=== PATIENT | female | born 1970 | race African-American/Black ===

== ENCOUNTER 2017-10-16 12:40 | Outpatient (CLI) | payer MEDICARE, MEDICAID | END 2017-10-16 12:41 | disposition home or self-care (01) | LOC: ULT 12:40 | PROVIDERS: ATTEND Internal Medicine | DX: R01.1 Cardiac murmur, unspecified (principal); E83.52 Hypercalcemia | CPT/HCPCS: 36415; 80048; 82306; 82330; 83970; 93306 ==

== ENCOUNTER 2017-12-24 11:44 | Outpatient (CLI) | payer MEDICARE, MEDICAID | END 2017-12-24 11:45 | disposition home or self-care (01) | LOC: BICMAMMO 11:44 | PROVIDERS: ATTEND Internal Medicine | DX: Z12.31 Encounter for screening mammogram for malignant neoplasm of breast (principal) | CPT/HCPCS: 77063; 77067 ==

== ENCOUNTER 2018-11-14 12:29 | Emergency (ER) | payer MEDICARE, MEDICAID ==
[2018-11-14 13:54] LABS: Hemoglobin 14.4 g/dL (12.0-16.0); Mean Corpuscular HGB CONC 32.8 g/dL (32.0-36.0); Mean Corpuscular Hemoglobin 34.8 pg (27.0-31.0); Mean Platelet Volume 8.5 fL (7.4-10.4); Platelet Count 224 thou/uL (130-400); Red Blood Cell (RBC) Count 4.15 mill/uL (4.20-5.40); White Blood Cell (WBC) Count 7.6 thou/uL (4.8-10.8)
[2018-11-14 14:12] LABS: ALT (SGPT) 15 U/L (8-55); AST (SGOT) 20 U/L (5-34); Alkaline Phosphatase 71 U/L (40-150); Anion Gap 12 mmol/L (10-20); BUN (Urea Nitrogen) 11 mg/dL (7.0-18.7); Bilirubin, Total 0.3 mg/dL (0.2-1.2); Calc. Creatinine Clearance 0 mL/min (70-130); Calcium 9.9 mg/dL (7.8-10.44); Carbon Dioxide 27 mmol/L (22-29); Chloride 105 mmol/L (98-107); Estimated GFR-MDRD 63; Globulin 3.5 g/dL (2.4-3.5); Glucose 84 mg/dL (70-105); Potassium 4.4 mmol/L (3.5-5.1); Protein, Total 7.5 g/dL (6.0-8.3); Sodium 140 mmol/L (136-145); Valproic Acid (Depakene) 121.1 ug/mL (50.0-100.0)
[2018-11-14 14:27] LABS: Band 5 % (5-11); Eosinophils 1 % (0-10); Lymphocytes 22 % (21-51); MDiff Complete? YES; Monocytes 17 % (0-10); Neutrophil 55 % (42-75); Platelet Morphology Comment Appears Adequate
[2018-11-14 15:40] LABS: Bilirubin Negative (Negative); Blood, Urine Negative (Negative); Clarity CLEAR (Clear); Glucose, Urine (Dipstick) Negative (Negative); Leukocyte Small (Negative); Nitrite Negative (Negative); Protein, Urine (Dipstick) Negative (Neg-Trace); Specific Gravity, Urine 1.008 (1.002-1.036); Urobilinogen 0.2 mg/dL (0.2-1.0)
[2018-11-14 15:42] LABS: Bacteria/HPF 4+ HPF (None Seen); Hyaline Casts/LPF 0-3 HYALINE CAST LPF (0-3 Hyaline); Pathc Cast-AUWi Flag 0.14 (0-2.49); RBC/HPF 0-3 HPF (0-3); Squamous Epithelial 0-3 HPF (0-3); WBC/HPF 0-3 HPF (0-3)
== END 2018-11-14 17:04 | disposition home or self-care (01) ==
LOC: ERS 12:29
DX: G40.909 Epilepsy, unspecified, not intractable, without status epilepticus (principal); I10 Essential (primary) hypertension; G80.9 Cerebral palsy, unspecified; E03.9 Hypothyroidism, unspecified; E78.5 Hyperlipidemia, unspecified; I95.1 Orthostatic hypotension; Z79.899 Other long term (current) drug therapy
CPT/HCPCS: 36415; 51701; 80053; 80164; 81003; 81015; 84146; 85025; 87077; 87086; 87186; A4353

== ENCOUNTER 2018-12-01 08:35 | Inpatient (IN) | payer MEDICARE, MEDICAID ==
[2018-12-01 09:22] LABS: Bilirubin Negative (Negative); Blood, Urine Small (Negative); Clarity Slightly Cloudy (Clear); Glucose, Urine (Dipstick) Negative (Negative); Leukocyte Trace (Negative); Nitrite Positive (Negative); Protein, Urine (Dipstick) Negative (Neg-Trace); Specific Gravity, Urine 1.025 (1.005-1.030); Urobilinogen 0.2 mg/dL (0.2-1.0); pH, Urine 5.5 (5.0-9.0)
[2018-12-01 09:31] LABS: Bacteria/HPF 4+ HPF (None Seen); Hyaline Casts/LPF NONE SEEN LPF (0-3 Hyaline); RBC/HPF 0-3 HPF (0-3); Squamous Epithelial 0-3 HPF (0-3)
[2018-12-01 09:38] LABS: ALT (SGPT) 20 U/L (8-55); AST (SGOT) 25 U/L (5-34); Albumin 4.2 g/dL (3.5-5.0); Alkaline Phosphatase 75 U/L (40-150); Anion Gap 17 mmol/L (10-20); BUN (Urea Nitrogen) 15 mg/dL (7.0-18.7); Bilirubin, Total 0.4 mg/dL (0.2-1.2); Calc. Creatinine Clearance 0 mL/min (70-130); Calcium 10.2 mg/dL (7.8-10.44); Carbon Dioxide 21 mmol/L (22-29); Chloride 107 mmol/L (98-107); Estimated GFR-MDRD 56; Globulin 3.6 g/dL (2.4-3.5); Glucose 98 mg/dL (70-105); Potassium 4.9 mmol/L (3.5-5.1); Protein, Total 7.8 g/dL (6.0-8.3); Sodium 140 mmol/L (136-145)
[2018-12-01 09:41] LABS: Hemoglobin 14.9 g/dL (12.0-16.0); Mean Corpuscular HGB CONC 32.9 g/dL (32.0-36.0); Mean Corpuscular Hemoglobin 33.6 pg (27.0-31.0); Mean Platelet Volume 9.4 fL (7.4-10.4); Platelet Count 280 thou/uL (130-400); Red Blood Cell (RBC) Count 4.45 mill/uL (4.20-5.40); White Blood Cell (WBC) Count 7.2 thou/uL (4.8-10.8)
[2018-12-01] MEDS ORDERED: Piperacillin/Tazobactam 2.25 GM VIAL ONE (09:43)
[2018-12-01 09:44] LABS: Phencyclidine (PCP) Detected (NotDetected); THC/Cannabinoid Screen Not Detected (NotDetected)
[2018-12-01 09:45] LABS: Amphetamine Not Detected (NotDetected); Barbiturates Screen Not Detected (NotDetected); Benzodiazepine Screen Not Detected (NotDetected); Cocaine Metabolite Screen Not Detected (NotDetected); Medtox Control Line Valid? VALID (VALID); Methadone Not Detected (NotDetected); Methamphetamine Not Detected (NotDetected); Opiate Screen Not Detected (NotDetected); Oxycodone Screen Not Detected (NotDetected); Tricyclic Screen Not Detected (NotDetected)
[2018-12-01 10:01] LABS: Band 3 % (5-11); Eosinophils 2 % (0-10); Lymphocytes 32 % (21-51); MDiff Complete? YES; Monocytes 4 % (0-10); Neutrophil 59 % (42-75); Platelet Morphology Comment Appears Adequate
[2018-12-01 11:03] LABS: Valproic Acid (Depakene) 131.8 ug/mL (50.0-100.0)
--- NOTE | 2018-12-01 11:15 | CT ---
CT HEAD NONCONTRAST: HISTORY: Altered mental status. Seizures. COMPARISON: 11/05/2016 FINDINGS: There is no evidence of acute intracranial hemorrhage or infarct. The ventricles appear normal in si ze, shape, and position. There is no mass effect or shift of midline structures. The visualized par anasal sinuses remain well aerated. Diffuse thickening of the calvarium is stable. IMPRESSION: No acute intracranial abnormalities are demonstrated. POS: [facility]
--- NOTE | 2018-12-01 11:16 | RAD ---
CHEST ONE VIEW: HISTORY: Altered mental status. COMPARISON: Chest radiograph from 01/23/2014. FINDINGS: The lungs are hypoinflated with vascular crowding. No pneumothorax. No effusion. No acute osseous abnormality. IMPRESSION: Lung hypoinflation and vascular crowding; otherwise, no acute intrathoracic abnormality. POS: [facility]
[2018-12-01] MEDS ORDERED: Acetaminophen 650 MG Suppository PR PRN (15:54)
[2018-12-01] MEDS ORDERED: Ondansetron ODT 4 MG TAB PO PRN (15:54)
[2018-12-01 16:52] VITALS: BMI 29.9
[2018-12-01] MEDS: Sodium Chloride 0.9% 1,000 ML IV SCH (16:54)
--- NOTE | 2018-12-01 16:59 | HP ---
PRIMARY CARE PROVIDER: Padmini Woodard MD HISTORY OF PRESENT ILLNESS: The patient referred to the [facility] after being referred to the emergency room by Dr. Mccall due to increased seizure activity, altered mental status, weakness, and outpatient therapy failure for UTI. The patient is nonverbal. I spoke with the poly area supervisor at the snf she lives with. She has had decreased intake, decreased alertness, and generalized weakness for the past several days. No other history is available. REVIEW OF SYSTEMS: Totally unobtainable as the patient is nonverbal. PAST MEDICAL HISTORY: Obtained from Dr. Mccall's note from today; intellectual disability, seizure disorder, hypothyroidism, dyslipidemia, cerebral palsy, scoliosis, elevated parathyroid hormone with normal calcium levels, renal insufficiency level 2. PAST SURGICAL HISTORY: No surgeries. CURRENT MEDICATIONS: 1. Divalproex 250 three tablets twice a day. 2. Cranberry concentrate. 3. Os-Mason. 4. Medroxyprogesterone acetate 150 mg/mL every 6 months. 5. Takes docusate sodium 100 mg twice a day. 6. Oxybutynin chloride 10 mg once daily. 7. Midodrine 5 mg three times a day. 8. Milk of magnesia p.r.n. 9. Levothyroxine 50 mcg a day. 10. Atorvastatin 40 mg a day. 11. Furosemide 40 mg a day. 12. Potassium chloride 10 mEq a day. 13. Has multiple p.r.n. medicines listed. ALLERGIES: TO BACTRIM. FAMILY HISTORY: Father , in MVA. Mother in 2014, history unknown. SOCIAL HISTORY: Lives in snf, nonverbal. No alcohol. No tobacco. Single, never , no children. I have no way to obtain a code status on this patient. PHYSICAL EXAMINATION: GENERAL: She is nonverbal. Does not respond appropriately to verbal stimuli. VITAL SIGNS: Blood pressure 146/82, pulse 80, respirations 16, and temperature 98.6. HEAD, EYES, EARS, NOSE, AND THROAT: Revealed pupils equal and reactive. Extraocular movements are grossly intact, but difficult to assess. Tympanic membranes are occluded with wax. Nose is clear. Oral mucous membranes are damp. NECK: No jugular venous distention, adenopathy, or thyromegaly. CHEST: Clear to auscultation and percussion. HEART: Regular rate and rhythm. First and second heart sounds are clear. There are no appreciated murmurs or gallops. ABDOMEN: Soft. Bowel sounds are normal. There is no hepatosplenomegaly. No mass. No rebound. EXTREMITIES: Reveal no cyanosis or clubbing. She has 1+ ankle edema. PULSES: Carotid, radial, femoral, and dorsalis pedis pulses palpable. SKIN: Warm and dry without lesion. LYMPHATIC SURVEY: Reveals no tender or swollen lymph nodes in axilla, inguinal, cervical area. NEUROLOGICAL: Her arms are contracted with increased tone. Deep tendon reflexes are diffusely increased. NEUROLOGIC: Cranial nerves 2 through 12 are grossly intact. LABORATORY DATA AND DIAGNOSTIC STUDIES: Reports: Chest x-ray done today; poor inspiration, no demonstrable infiltrates or failure on my exam. EKG, none presented. Laboratory; urine drug screen shows only phencyclidine. Valproic acid of 132 which is high. Urine shows 7 to 10 white cells with positive nitrite and trace positive leukocyte esterase. Creatinine is 1.24. CO2 is 21. Complete metabolic profile otherwise normal. CBC; white count 7.2, no left shift, hemoglobin 14.9, and platelet count 280. PROBLEM: 1. This patient is apparently a mosaic with cerebral palsy and intellectual disability. 2. Seizure disorder with an elevated valproic acid. 3. Recurrent urinary tract infections, treatment failure. 4. Hypothyroidism. 5. Dyslipidemia. PLAN: I see no way to adequately assess and treat this patient in less than two overnights and therefore I will make her a full admit. Catheter specimens will be obtained for UA and urine culture. Blood cultures will be obtained. CBC and basic metabolic profile will be reviewed in the morning. Her valproic acid dose will be reduced from 750 b.i.d. to 500 b.i.d. IV cefepime will be started in the meantime while awaiting cultures. She will be treated with enoxaparin for DVT prophylaxis and because of her decreased intake and alertness, she will be given IV fluids at 100 mL an hour for the short term. Job ID: [id number]
[2018-12-01] MEDS: Cefepime 1 GM in Sodium Chloride 0.9% 100 ML IVPB SCH (19:58)
[2018-12-02] MEDS: Sodium Chloride 0.9% 1,000 ML IV SCH ×3 (03:59→16:32)
[2018-12-02] MEDS: Cefepime 1 GM in Sodium Chloride 0.9% 100 ML IVPB SCH ×2 (08:36→20:41)
[2018-12-02] MEDS: Enoxaparin Sodium 40 MG/0.4 ML SYRINGE SC SCH (08:37)
[2018-12-02] MEDS ORDERED: Ibuprofen 200 MG TAB PO PRN (10:52)
[2018-12-02 12:01] LABS: #Eosinphils 0.3 thou/uL (0.0-0.7); #Lymphocytes 2.1 thou/uL (1.20-3.40); #Monocytes 0.7 thou/uL (0.11-0.59); #Neutrophils 3.7 thou/uL (1.40-6.50); %Basophils 0.4 % (0.0-1.0); %Eosinophils 4.1 % (0.0-10.0); %Lymphocytes 31.3 % (21.0-51.0); %Monocytes 9.7 % (0.0-10.0); %Neutrophils 54.6 % (42.0-75.0); Hemoglobin 15.3 g/dL (12.0-16.0); Mean Corpuscular HGB CONC 32.1 g/dL (32.0-36.0); Mean Corpuscular Hemoglobin 34.2 pg (27.0-31.0); Mean Platelet Volume 10.2 fL (7.4-10.4); Platelet Count 192 thou/uL (130-400); RBC Distribution Width 13.1 % (11.5-14.5); Red Blood Cell (RBC) Count 4.47 mill/uL (4.20-5.40); White Blood Cell (WBC) Count 6.7 thou/uL (4.8-10.8)
[2018-12-02 12:30] LABS: Chloride 106 mmol/L (98-107); Potassium 3.5 mmol/L (3.5-5.1); Sodium 138 mmol/L (136-145)
[2018-12-02 12:31] LABS: Calcium 9.7 mg/dL (7.8-10.44); Glucose 64 mg/dL (70-105)
[2018-12-02 12:33] LABS: Anion Gap 19 mmol/L (10-20); Carbon Dioxide 17 mmol/L (22-29)
[2018-12-02 12:35] LABS: Calc. Creatinine Clearance 85 mL/min (70-130); Estimated GFR-MDRD 69
[2018-12-02 12:36] LABS: BUN (Urea Nitrogen) 10 mg/dL (7.0-18.7)
--- NOTE | 2018-12-02 13:13 | PDOC.PN ---
- Subjective Encounter Start Date: 12/02/18 Encounter Start Time: 10:30 Subjective: is awake, not in distress -: follows some verbal stimuli but mostly no - Objective Resuscitation Status - Order Detail: 12/01/18 15:51 Resuscitation Status Routine Resuscitation Status: FULL: Full Resuscitation MAR Reviewed: Yes Vital Signs & Weight: Vital Signs (12 hours) Temp Pulse Resp BP Pulse Ox 12/02/18 08:00 94 L 12/02/18 06:52 98.6 F 88 18 113/60 94 L Weight Weight 180 lb 1.883 oz I&O: 12/01/18 12/02/18 12/03/18 06:59 06:59 06:59 Intake Total 1700 Balance 1700 Result Diagrams: 12/02/18 09:53 12/02/18 09:53 Phys Exam - Physical Examination HEENT: PERRLA, sclera anicteric Neck: no JVD, supple Respiratory: no wheezing, no rales Cardiovascular: RRR, no significant murmur Gastrointestinal: soft, non-tender, positive bowel sounds Musculoskeletal: no edema, pulses present Neurological: non-focal, moves all 4 limbs Dx/Plan (1) UTI (urinary tract infection) Status: Acute Qualifiers: Urinary tract infection type: acute cystitis Hematuria presence: without hematuria Qualified Code(s): N30.00 - Acute cystitis without hematuria (2) Seizure disorder Code(s): G40.909 - EPILEPSY, UNSP, NOT INTRACTABLE, WITHOUT STATUS EPILEPTICUS Status: Acute (3) Intellectual disability Code(s): F79 - UNSPECIFIED INTELLECTUAL DISABILITIES Status: Chronic (4) Dyslipidemia Code(s): E78.5 - HYPERLIPIDEMIA, UNSPECIFIED Status: Chronic (5) Hypothyroidism Code(s): E03.9 - HYPOTHYROIDISM, UNSPECIFIED Status: Chronic Qualifiers: Hypothyroidism type: unspecified Qualified Code(s): E03.9 - Hypothyroidism , unspecified - Plan is on cefepime, await culture results -: has pcp +ve in urine, pharmacy consultation to r/o med induced +ve status -: continue depakote at 500mg bid -: encourage po intake -: PT to mobilize as tolerated. Her baseline cognition is unclear * . Review of Systems - Medications/Allergies Allergies/Adverse Reactions: Allergies Allergy/AdvReac Type Severity Reaction Status Date / Time sulfamethoxazole Allergy Verified 12/01/18 15:51 [From Bactrim] trimethoprim [From Bactrim] Allergy Verified 12/01/18 15:51 Medications: Current Medications Acetaminophen (Tylenol) 650 mg CA Q4H PRN PRN Reason: Headache/Fever/Mild Pain (1-3) Atorvastatin Calcium (Lipitor) 40 mg PO HS [facility] Divalproex Sodium (Depakote Er) 500 mg PO BID [facility] Last Admin: 12/02/18 08:37 Dose: 500 mg Docusate Sodium (Colace) 100 mg PO BID [facility] Enoxaparin Sodium (Lovenox) 40 mg SC 0900 [facility] Last Admin: 12/02/18 08:37 Dose: 40 mg Sodium Chloride (Normal Saline 0.9%) 1,000 mls @ 100 mls/hr IV .Q10H [facility] Last Admin: 12/02/18 11:46 Dose: Not Given Cefepime HCl 1 gm/ Sodium (Chloride) 100 mls @ 200 mls/hr IVPB Q12HR [facility] Last Admin: 12/02/18 08:36 Dose: 100 mls Ibuprofen (Motrin) 400 mg PO Q6H PRN PRN Reason: Pain Lamotrigine (Lamictal) 200 mg PO BID [facility] Levothyroxine Sodium (Synthroid) 50 mcg PO 0600 [facility] Ondansetron HCl (Zofran Odt) 4 mg PO Q6H PRN PRN Reason: Nausea/Vomiting Oxybutynin Chloride (Ditropan) 10 mg PO DAILY [facility]
[2018-12-02] MEDS: Docusate 100 MG CAP PO SCH (20:42)
[2018-12-02] MEDS: lamoTRIgine 100 MG TAB PO SCH (20:42)
[2018-12-02] MEDS ORDERED: Atorvastatin Calcium 40 MG TAB PO SCH (21:00)
[2018-12-03] MEDS: Sodium Chloride 0.9% 1,000 ML IV SCH (02:22)
[2018-12-03] MEDS ORDERED: Levothyroxine Sodium 50 MCG TAB PO SCH (06:00)
[2018-12-03 07:19] VITALS: TEMP 98.3
[2018-12-03] MEDS ORDERED: Oxybutynin 5 MG TAB PO SCH (09:00)
[2018-12-03] MEDS: lamoTRIgine 100 MG TAB PO SCH (09:43)
[2018-12-03] MEDS: Enoxaparin Sodium 40 MG/0.4 ML SYRINGE SC SCH (09:44)
[2018-12-03] MEDS: Docusate 100 MG CAP PO SCH (09:44)
--- NOTE | 2018-12-03 10:14 | PDOC.PN ---
- Subjective Encounter Start Date: 12/03/18 Encounter Start Time: 08:30 Subjective: still waking up, not in distress -: speeks a few sentences -: no overnight seizures - Objective Resuscitation Status - Order Detail: 12/01/18 15:51 Resuscitation Status Routine Resuscitation Status: FULL: Full Resuscitation MAR Reviewed: Yes Vital Signs & Weight: Vital Signs (12 hours) Temp Pulse Resp BP BP Pulse Ox 12/03/18 08:10 97 12/03/18 07:14 98.3 F 86 18 125/67 97 12/03/18 04:00 98.7 F 86 20 128/75 97 12/03/18 00:00 98.5 F 68 20 131/79 97 12/02/18 22:33 96 Weight Weight 180 lb 1.883 oz I&O: 12/02/18 12/03/18 12/04/18 06:59 06:59 06:59 Intake Total 1700 3630 Balance 1700 3630 Result Diagrams: 12/02/18 09:53 12/02/18 09:53 Additional Labs: Accuchecks 12/02/18 22:42 POC Glucose 130 H Phys Exam - Physical Examination HEENT: PERRLA, moist MMs Neck: no JVD, supple Respiratory: no wheezing, no rales Cardiovascular: RRR, no significant murmur Gastrointestinal: soft, non-tender, positive bowel sounds Musculoskeletal: no edema, pulses present Neurological: non-focal, moves all 4 limbs Dx/Plan (1) UTI (urinary tract infection) Status: Acute Qualifiers: Urinary tract infection type: acute cystitis Hematuria presence: without hematuria Qualified Code(s): N30.00 - Acute cystitis without hematuria (2) Seizure disorder Code(s): G40.909 - EPILEPSY, UNSP, NOT INTRACTABLE, WITHOUT STATUS EPILEPTICUS Status: Acute (3) Intellectual disability Code(s): F79 - UNSPECIFIED INTELLECTUAL DISABILITIES Status: Chronic (4) Dyslipidemia Code(s): E78.5 - HYPERLIPIDEMIA, UNSPECIFIED Status: Chronic (5) Hypothyroidism Code(s): E03.9 - HYPOTHYROIDISM, UNSPECIFIED Status: Chronic Qualifiers: Hypothyroidism type: unspecified Qualified Code(s): E03.9 - Hypothyroidism , unspecified - Plan unclear baseline cognitive and ambulatory status -[facility] -: is on levaquin for uti -: continue depakote, lamotrigine, lipitor as before -: OT eval (didnt let them work with her), hopefully will get up with PT later * . Review of Systems - Medications/Allergies Allergies/Adverse Reactions: Allergies Allergy/AdvReac Type Severity Reaction Status Date / Time sulfamethoxazole Allergy Verified 12/01/18 15:51 [From Bactrim] trimethoprim [From Bactrim] Allergy Verified 12/01/18 15:51 Medications: Current Medications Acetaminophen (Tylenol) 650 mg NV Q4H PRN PRN Reason: Headache/Fever/Mild Pain (1-3) Atorvastatin Calcium (Lipitor) 40 mg PO HS [facility] Last Admin: 12/02/18 20:41 Dose: 40 mg Divalproex Sodium (Depakote Er) 500 mg PO BID [facility] Last Admin: 12/03/18 09:44 Dose: 500 mg Docusate Sodium (Colace) 100 mg PO BID [facility] Last Admin: 12/03/18 09:44 Dose: 100 mg Enoxaparin Sodium (Lovenox) 40 mg SC 0900 [facility] Last Admin: 12/03/18 09:44 Dose: Not Given Ibuprofen (Motrin) 400 mg PO Q6H PRN PRN Reason: Pain Lamotrigine (Lamictal) 200 mg PO BID [facility] Last Admin: 12/03/18 09:43 Dose: 200 mg Levofloxacin (Levaquin) 500 mg PO 0600 [facility] Levofloxacin (Levaquin) 500 mg PO NOW [facility] Stop: 12/03/18 11:30 Last Admin: 12/03/18 09:44 Dose: 500 mg Levothyroxine Sodium (Synthroid) 50 mcg PO 0600 [facility] Last Admin: 12/03/18 05:37 Dose: 50 mcg Ondansetron HCl (Zofran Odt) 4 mg PO Q6H PRN PRN Reason: Nausea/Vomiting Oxybutynin Chloride (Ditropan) 10 mg PO DAILY [facility] Last Admin: 12/03/18 09:43 Dose: 10 mg
[2018-12-03 14:11] VITALS: BP 129/89
--- NOTE | 2018-12-03 16:25 | DIS ---
DATE OF ADMISSION: 12/01/2018 DATE OF DISCHARGE: 12/03/2018 DISCHARGE DISPOSITION: To [facility]. PRIMARY DISCHARGE DIAGNOSIS: Urinary tract infection. SECONDARY DISCHARGE DIAGNOSES: Seizure disorder, intellectual disability, dyslipidemia, and hypothyroidism. PROCEDURES DONE DURING HOSPITALIZATION: The patient had CT brain done, which did not reveal any acute intracranial abnormality. Chest x-ray, one view showed hypoinflation of the lungs, otherwise no acute intrathoracic abnormalities were seen. Urine culture grew E. coli, sensitive to quinolones. Blood cultures x2, no growth. DISCHARGE MEDICATIONS: 1. Lipitor 40 mg p.o. nightly. 2. Lasix 40 mg p.o. daily. 3. Motrin p.r.n. for pain. 4. Lamotrigine 200 mg p.o. twice daily. 5. Levothyroxine 50 mcg p.o. daily. 6. Claritin 10 mg p.o. daily. 7. Depo Provera 150 mg intramuscular every three months. 8. Midodrine 5 mg three times daily. 9. Oxybutynin extended release 10 mg daily. 10. Potassium chloride 10 mEq p.o. daily. 11. Depakote extended release 500 mg twice daily. 12. Levaquin 500 mg p.o. daily for another 4 days. ALLERGIES: SULFA. DISCHARGE PLAN: The patient is to follow up with her primary care physician in one week. BRIEF COURSE DURING HOSPITALIZATION: The patient initially was admitted on by Dr. Harmon for possible increased seizure activity, altered mental state, and weakness, and was sent over from Dr. Mccall, her neurologist. On arrival in ER, the patient had complete workup done and was found to have had UTI. The patient also had decreased oral intake and was more lethargic than her usual self at the [facility] where she lives apparently. She was initially admitted to medical floor and was placed on IV antibiotics. Hoff cultures were obtained. Her urine culture grew E. coli sensitive to quinolones. Blood cultures have not grown any organism. The patient is back to her baseline cognitive status, this was confirmed with staff from [facility], who evaluated the patient at bedside here. Her valproic acid was 131.8 mcg/mL on admission and the dose was reduced to 500 mg twice daily based on this. She needs to continue Levaquin for another four more days. The patient did not witness any seizure or seizure-like activity during her stay here. She is eating at her baseline and interacting minimally, which appears to be her baseline. Case management consultation was initially requested due to her urine drug screen being positive for PCP, that is phencyclidine, but this might be due to one of the medications that she is taking, which might have given a false-positive result. Case Management, Social Work are looking into this. Please see a [id number] documentation for the day of discharge on [employer]. Job ID: [id number]
== END 2018-12-03 14:23 | disposition short-term general hospital (02) | DRG 690 ==
LOC: SCSER 08:35 → T4-A 15:40 → OBSVTOIN 15:54
PROVIDERS: ADMIT Internal Medicine; ATTEND Internal Medicine
DX: N39.0 Urinary tract infection, site not specified (principal); F79 Unspecified intellectual disabilities; E03.9 Hypothyroidism, unspecified; G40.909 Epilepsy, unspecified, not intractable, without status epilepticus; E78.5 Hyperlipidemia, unspecified; G80.9 Cerebral palsy, unspecified; B96.20 Unspecified Escherichia coli [E. coli] as the cause of diseases classified elsewhere; M41.9 Scoliosis, unspecified; Z79.899 Other long term (current) drug therapy; Z88.1 Allergy status to other antibiotic agents; Z88.2 Allergy status to sulfonamides
CPT/HCPCS: 36415; 36416; 51701; 70450; 71045; 80048; 80053; 80164; 80306; 81003; 81015; 83605; 84146; 85025; 87040; 87077; 87086; 87186; 96365; A4353; J0692; J1650; J2543; J7050

== ENCOUNTER 2018-12-13 18:05 | Emergency (ER) | payer MEDICARE, MEDICAID ==
[2018-12-13 19:36] LABS: Hemoglobin 14.6 g/dL (12.0-16.0); Mean Corpuscular HGB CONC 33.2 g/dL (32.0-36.0); Mean Corpuscular Hemoglobin 34.7 pg (27.0-31.0); Mean Platelet Volume 8.5 fL (7.4-10.4); Platelet Count 249 thou/uL (130-400); RBC Distribution Width 13.1 % (11.5-14.5); White Blood Cell (WBC) Count 6.9 thou/uL (4.8-10.8)
[2018-12-13 19:55] LABS: ALT (SGPT) 22 U/L (8-55); AST (SGOT) 25 U/L (5-34); Albumin 3.6 g/dL (3.5-5.0); Alkaline Phosphatase 77 U/L (40-150); Anion Gap 12 mmol/L (10-20); BUN (Urea Nitrogen) 12 mg/dL (7.0-18.7); Bilirubin, Total 0.2 mg/dL (0.2-1.2); Calc. Creatinine Clearance 0 mL/min (70-130); Calcium 9.9 mg/dL (7.8-10.44); Carbon Dioxide 26 mmol/L (22-29); Chloride 105 mmol/L (98-107); Estimated GFR-MDRD 72; Globulin 3.3 g/dL (2.4-3.5); Glucose 101 mg/dL (70-105); Potassium 3.9 mmol/L (3.5-5.1); Protein, Total 6.9 g/dL (6.0-8.3); Sodium 139 mmol/L (136-145); Valproic Acid (Depakene) 77.7 ug/mL (50.0-100.0)
[2018-12-13 19:58] LABS: Lymphocytes 51 % (21-51); MDiff Complete? YES; Monocytes 12 % (0-10); Neutrophil 37 % (42-75); Platelet Morphology Comment Appears Adequate
--- NOTE | 2018-12-13 20:36 | CT ---
CT BRAIN: HISTORY: Altered mental status. TECHNIQUE: Noncontrast enhanced CT images of the brain obtained. FINDINGS: There is diffuse calvarial thickening. No evidence of acute intracranial masses, hemorrhages, stroke s, or contusions seen. The ventricles are of normal size. The patient appears to have had a partial old stroke of the right cerebellum. IMPRESSION: 1. Some cortical atrophy and extensive calvarial thickening, compatible with a history of seizure an d, I suspect, possible changes from chronic Dilantin use. Correlate with history. 2. No evidence of acute intracranial abnormality seen. POS: [facility]
== END 2018-12-13 20:57 | disposition home or self-care (01) ==
LOC: ERS 18:05
DX: G40.909 Epilepsy, unspecified, not intractable, without status epilepticus (principal); E03.9 Hypothyroidism, unspecified; E78.5 Hyperlipidemia, unspecified; I95.9 Hypotension, unspecified; K59.00 Constipation, unspecified; Z79.899 Other long term (current) drug therapy
CPT/HCPCS: 36415; 70450; 80053; 80164; 84146; 85025; 93005

== ENCOUNTER 2018-12-14 23:08 | Emergency (ER) | payer MEDICARE, MEDICAID ==
[2018-12-15 00:31] LABS: ALT (SGPT) 23 U/L (8-55); AST (SGOT) 24 U/L (5-34); Albumin 3.8 g/dL (3.5-5.0); Alkaline Phosphatase 88 U/L (40-150); Anion Gap 15 mmol/L (10-20); BUN (Urea Nitrogen) 14 mg/dL (7.0-18.7); Bilirubin, Total 0.3 mg/dL (0.2-1.2); Calc. Creatinine Clearance 0 mL/min (70-130); Calcium 10.2 mg/dL (7.8-10.44); Carbon Dioxide 24 mmol/L (22-29); Chloride 104 mmol/L (98-107); Estimated GFR-MDRD 77; Globulin 3.5 g/dL (2.4-3.5); Glucose 106 mg/dL (70-105); Potassium 4.4 mmol/L (3.5-5.1); Protein, Total 7.3 g/dL (6.0-8.3); Sodium 139 mmol/L (136-145)
[2018-12-15 00:53] LABS: Hemoglobin 15.3 g/dL (12.0-16.0); Mean Corpuscular HGB CONC 33.9 g/dL (32.0-36.0); Mean Platelet Volume 8.8 fL (7.4-10.4); Platelet Count 133 thou/uL (130-400); RBC Distribution Width 12.9 % (11.5-14.5); Red Blood Cell (RBC) Count 4.37 mill/uL (4.20-5.40); White Blood Cell (WBC) Count 10.5 thou/uL (4.8-10.8)
[2018-12-15 01:15] LABS: Band 2 % (5-11); Lymphocytes 27 % (21-51); MDiff Complete? YES; Monocytes 22 % (0-10); Neutrophil 49 % (42-75); Platelet Clumps SLIGHT; Platelet Morphology Comment Appears Adequate
--- NOTE | 2018-12-15 09:33 | CT ---
PRELIMINARY REPORT/[facility]/EMERGENTY AFTER-HOURS PROCEDURE CT Head Without Contrast EXAM DATE/TIME: 12/15/2018 12:12 AM CLINICAL HISTORY: 48 years old, female; Condition or disease; Convulsions or seizures; Unspecified; Patient HX: Er 12. No previous in pacs. 48f presents via ems for the evaluation of a seizure with HX of. Patient had wit nessed seizure tonight at her [facility], and fell from her wheel chair. Patient with contusion over right eye. Patient with HX of cerebral palsy and is at baseline per [facility]. Answers yes or no que stions but poor historian. Takes depakote for seizure control. Was seen in the ed yesterday for the same TECHNIQUE: Axial computed tomography images of the head/brain without contrast. COMPARISON: No relevant prior studies available. FINDINGS: Brain: No acute intracranial hemorrhage or mass effect. There is mild, relatively symmetrical decreas ed attenuation in the periventricular white matter, likely from microvascular disease. No definite ac main infarct by CT. MRI could be more sensitive/specific for detection, as clinically directed. Ventricles: Ventricle size is normal for age. Bones/joints: No definite acute skull fracture. Sinuses: Included paranasal sinuses are essentially clear. Mastoid air cells: No significant acute finding. Soft tissues: Evidence for soft tissue injury/scalp hematoma in the right supraorbital region. IMPRESSION: 1. No acute intracranial bleed or mass effect. 2. No definite acute infarct by CT, see above. 3. Other findings discussed above. Thank you for allowing us to participate in the care of your patient. Dictated and Authenticated by: Taye Keen MD 12/15/2018 12:52 AM Central Time ([place] & [place]) FINAL REPORT EMERGENCY AFTER HOURS STUDY CT BRAIN NONCONTRAST: DATE: 12/15/2018. TIME: 12:14 a.m. HISTORY: A 48-year-old female status post seizure resulting in fall and acute head trauma. FINDINGS: There is no midline shift or any other mass effect. There is no evidence of acute intracranial hemor rhage, large cortical infarct, obstructive hydrocephalus, or extraaxial fluid collection. The calvar ium is intact. There is hyperostosis of the calvarium. There is cerebellar atrophy and associated e x vacuo dilation of the 4th ventricle. The only interval change compared to 12/13/2018 is the presence of a new right supraorbital contusion. This report agrees with preliminary report by [facility]. IMPRESSION: 1. No acute intracranial findings. 2. Acute, traumatic right supraorbital superficial soft tissue contusion. 3. Cerebellar atrophy. bernard POS: [facility]
--- NOTE | 2018-12-15 09:35 | CT ---
PRELIMINARY REPORT/[facility]/EMERGENTY AFTER-HOURS PROCEDURE CT Cervical Spine Without Contrast EXAM DATE/TIME: 12/15/2018 12:12 AM CLINICAL HISTORY: 48 years old, female; Injury or trauma; Fall; Initial encounter; Blunt trauma; Patient HX: Er 12. No previous in pacs. 48f presents via ems for the evaluation of a seizure with HX of. Patient had witnes sed seizure tonight at her nursing home, and fell from her wheel chair. Patient with contusion over right eye. Patient with HX of cerebral palsy and is at baseline per nursing home. Answers yes or n o questions but poor historian. Takes depakote for seizure control. Was seen in the ed yesterday for the same TECHNIQUE: Axial computed tomography images of the cervical spine without intravenous contrast. COMPARISON: No relevant prior studies available. FINDINGS: Vertebrae: On axial CT images, no definite acute fracture is visible. Sagittal and coronal reconstructions show no fracture or subluxation. Discs/Spinal canal/Neural foramina: Mild to moderate degenerative disc changes at several levels. Prominent anterior disc margin spurring from C4 through C7. At C3-4, moderate bulging/protruding disc, suspicious for a focal disc herniation. MRI could be more sensitive if clinically indicated. Mild bulging disc suspected at C2-3. Lungs: Lung apices appear essentially unremarkable. IMPRESSION: 1. No definite acute fracture or subluxation by CT. 2. Other findings discussed above. Thank you for allowing us to participate in the care of your patient. Dictated and Authenticated by: Taye Keen MD 12/15/2018 12:59 AM Central Time ([place] & [place]) FINAL REPORT EMERGENCY AFTER HOURS STUDY CT CERVICAL SPINE NONCONTRAST: HISTORY: A 48-year-old female status post acute cervical trauma from fall due to seizure. FINDINGS: There are no jumped or perched facets. There is no evidence of acute fracture. The vertebral body h eights are maintained. There is no prevertebral soft tissue swelling. Bulky osteophytes protrude an teriorly into the prevertebral space (consistent with DISH) at all levels from C3-4 through C6-7. Th is could potentially result in dysphagia. There are disk herniations at certain levels. No major di sagreement with preliminary report by [facility]. IMPRESSION: No evidence of acute fracture or acute traumatic subluxation. bernard POS: [facility]
== END 2018-12-15 01:49 | disposition home or self-care (01) ==
LOC: ERS 23:08
DX: G40.909 Epilepsy, unspecified, not intractable, without status epilepticus (principal); E03.9 Hypothyroidism, unspecified; E78.5 Hyperlipidemia, unspecified; I95.9 Hypotension, unspecified; Z79.899 Other long term (current) drug therapy
CPT/HCPCS: 36415; 70450; 72125; 80053; 85025

== ENCOUNTER 2018-12-15 08:20 | Emergency (ER) | payer MEDICARE, MEDICAID ==
[2018-12-15] MEDS ORDERED: Lorazepam 2 MG/ML VIAL ONE ×2 (08:32→08:46)
[2018-12-15 09:38] LABS: Hemoglobin 14.5 g/dL (12.0-16.0); Mean Platelet Volume 9.5 fL (7.4-10.4); Platelet Count 238 thou/uL (130-400); RBC Distribution Width 13.1 % (11.5-14.5); Red Blood Cell (RBC) Count 4.14 mill/uL (4.20-5.40); White Blood Cell (WBC) Count 7.3 thou/uL (4.8-10.8)
[2018-12-15] MEDS ORDERED: levETIRAcetam In NaCl (Iso-Os) 1,500 MG in Premix Bag 1 BAG IVPB SCH (09:45)
[2018-12-15 09:47] LABS: Bilirubin Negative (Negative); Blood, Urine Negative (Negative); Clarity CLEAR (Clear); Glucose, Urine (Dipstick) Negative (Negative); Leukocyte Negative (Negative); Nitrite Negative (Negative); Protein, Urine (Dipstick) Negative (Neg-Trace); Specific Gravity, Urine 1.013 (1.002-1.036); Urobilinogen 0.2 mg/dL (0.2-1.0); pH, Urine 6.5 (5.0-9.0)
[2018-12-15] MEDS ORDERED: ISOVUE-370 76%-LOCM 1 ML ONE (10:01)
[2018-12-15 10:19] LABS: Band 13 % (5-11); Eosinophils 2 % (0-10); Lymphocytes 26 % (21-51); MDiff Complete? YES; Macrocytosis SLIGHT = 6-15 cells (100X) (0-5/hpf); Monocytes 2 % (0-10); Neutrophil 52 % (42-75); Platelet Morphology Comment Appears Adequate; Reactive Lymphocytes 5 % (0-10)
[2018-12-15 11:02] LABS: ALT (SGPT) 24 U/L (8-55); AST (SGOT) 34 U/L (5-34); Albumin 3.9 g/dL (3.5-5.0); Alkaline Phosphatase 91 U/L (40-150); Anion Gap 16 mmol/L (10-20); BUN (Urea Nitrogen) 11 mg/dL (7.0-18.7); Bilirubin, Total 0.3 mg/dL (0.2-1.2); Calc. Creatinine Clearance 0 mL/min (70-130); Calcium 10.2 mg/dL (7.8-10.44); Carbon Dioxide 23 mmol/L (22-29); Chloride 106 mmol/L (98-107); Estimated GFR-MDRD 87; Globulin 3.5 g/dL (2.4-3.5); Glucose 97 mg/dL (70-105); Potassium 4.6 mmol/L (3.5-5.1); Protein, Total 7.4 g/dL (6.0-8.3); Sodium 140 mmol/L (136-145)
--- NOTE | 2018-12-15 11:50 | RAD ---
RADIOGRAPH CHEST 1 VIEW: Date: 12/15/2018. Time: 10:43 a.m. HISTORY: A 48-year-old female with increasing generalized weakness and seizures. Altered mental status. COMPARISON: 12/01/2018. FINDINGS: There is a small focal patchy opacity at the left lateral lower lung zone which appears slightly larg er than on 12/01/2018, and is new since 01/23/2014. The rest of the visualized lung decker are grossly clear. Lungs are hypoinflated again. No pneumothorax. No effacement of lateral costophrenic angle s. No other interval change. IMPRESSION: 1. Nonspecific small focal opacity at the left lateral lower lung zone. 2. The rest of the lungs are clear. 3. Recommend followup. GILL [] POS: [facility]
--- NOTE | 2018-12-15 12:19 | CT ---
CT CHEST WITH CONTRAST: HISTORY: Altered mental status. Seizure. Fall. COMPARISON: Chest radiograph of same day. FINDINGS: Mild atelectatic changes in the left lung base. No pneumothorax. No effusion. No focal airspace co nsolidation. No pericardial effusion. NO mediastinal adenopathy. No axillary or internal mammary adenopathy. There is cholelithiasis. The remainder of the upper abdomen appears unremarkable. No suspicious osteolytic or osteoblastic lesions. Moderate degenerative disease of the left glenohum eral joint. No displaced rib fracture. IMPRESSION: 1. Left basilar atelectasis. 2. Cholelithiasis. POS: [facility]
== END 2018-12-15 13:24 | disposition home or self-care (01) ==
LOC: ERS 08:20
DX: S00.83XA Contusion of other part of head, initial encounter (principal); G40.909 Epilepsy, unspecified, not intractable, without status epilepticus; G80.9 Cerebral palsy, unspecified; E03.9 Hypothyroidism, unspecified; E78.5 Hyperlipidemia, unspecified; Z79.899 Other long term (current) drug therapy; W19.XXXA Unspecified fall, initial encounter
CPT/HCPCS: 36415; 51701; 71045; 71260; 80164; 81003; 83605; 87040; 87086; 93005; 96361; 96365; 96375; A4353; J1953; J2060; Q9966

== ENCOUNTER 2018-12-17 07:57 | Outpatient (CLI) | payer MEDICARE, MEDICAID ==
--- NOTE | 2018-12-17 10:37 | EEG ---
Referring Physician: Michelle GERMAIN EEG # [id number] TEST TYPE: ROUTINE PORTABLE INPATIENT REPORT: AN EEG USING THE INTERNATIONAL TEN-TWENTY SYSTEM OF ELECTRODE PLACEMENT WAS PERFORMED. The best waking background is a low amplitude 8 hertz alpha frequency. Some intermixed Theta frequencies are seen over both hemispheres. The patient appeared to be awake throughout the study. The patient had some behavioral event that is consistent with her recent seizure activity. No epileptiform features were associated with this behavior. No sleep was seen. Photic stimulation was unremarkable. IMPRESSION: THIS IS A NORMAL EEG WITHOUT EVIDENCE OF EPILEPTIFORM ACTIVITY ASSOCIATED WITH THE PATIENT'S BEHAVIOR. [employer]: willie Social Media Manager: [email or web address]
== END 2018-12-17 07:58 | disposition home or self-care (01) ==
LOC: EEG 07:57
PROVIDERS: ATTEND Psychiatry & Neurology Neurology
DX: G40.209 Localization-related (focal) (partial) symptomatic epilepsy and epileptic syndromes with complex partial seizures, not intractable, without status epilepticus (principal)
CPT/HCPCS: 95816

== ENCOUNTER 2019-08-19 20:25 | Emergency (ER) | payer MEDICARE, MEDICAID ==
[~2019-08-19 20:25] MED LIST: Iopamidol-370 76% 500 ML 1 ML ONE
[2019-08-19] MEDS ORDERED: Fentanyl 100 MCG/2 ML VIAL ONE (20:41)
[2019-08-19 21:35] LABS: #Basophils 0.1 thou/uL (0.0-0.2); #Eosinphils 0.1 thou/uL (0.0-0.7); #Lymphocytes 1.9 thou/uL (1.20-3.40); #Monocytes 0.9 thou/uL (0.11-0.59); #Neutrophils 5.1 thou/uL (1.40-6.50); %Basophils 0.8 % (0.0-1.0); %Eosinophils 1.1 % (0.0-10.0); %Lymphocytes 23.4 % (21.0-51.0); %Neutrophils 63.7 % (42.0-75.0); Hemoglobin 15.8 g/dL (12.0-16.0); Mean Corpuscular HGB CONC 32.8 g/dL (32.0-36.0); Mean Corpuscular Hemoglobin 33.1 pg (27.0-31.0); Mean Platelet Volume 11.3 fL (7.4-10.4); Platelet Count 131 thou/uL (130-400); RBC Distribution Width 12.6 % (11.5-14.5); Red Blood Cell (RBC) Count 4.78 mill/uL (4.20-5.40); White Blood Cell (WBC) Count 7.9 thou/uL (4.8-10.8)
[2019-08-19 21:50] LABS: ALT (SGPT) 16 U/L (8-55); AST (SGOT) 24 U/L (5-34); Albumin 4.3 g/dL (3.5-5.0); Alkaline Phosphatase 81 U/L (40-110); Anion Gap 16 mmol/L (10-20); BUN (Urea Nitrogen) 18 mg/dL (7.0-18.7); Bilirubin, Total 0.3 mg/dL (0.2-1.2); Calc. Creatinine Clearance 0 mL/min (70-130); Carbon Dioxide 27 mmol/L (22-29); Chloride 104 mmol/L (98-107); Estimated GFR-MDRD 59; Globulin 3.6 g/dL (2.4-3.5); Glucose 138 mg/dL (70-105); Potassium 4.7 mmol/L (3.5-5.1); Protein, Total 7.9 g/dL (6.0-8.3); Sodium 142 mmol/L (136-145)
--- NOTE | 2019-08-19 21:53 | CT ---
CT Abdomen Pelvis W Con: 08/19/2019 12:00 AM CLINICAL INFORMATION: Nausea and vomiting after a seizure COMPARISON: None. TECHNIQUE: Multiple contiguous axial images were obtained and a CT of the abdomen and pelvis with IV contrast. C oronal and sagittal reformats were performed. FINDINGS: Lower Chest: within normal limits. Abdomen: Liver: within normal limits. Bile Ducts: Normal caliber. Gallbladder: Calcified gallstones Pancreas: within normal limits. Spleen: within normal limits. Adrenals: within normal limits. Kidneys: within normal limits. Pelvis: Reproductive Organs: No pelvic masses. Ureters: within normal limits. Bladder: within normal limits. Peritoneum: No ascites or free air, no fluid collection. Bowel: Normal caliber. Moderate stool retention throughout the colon. A moderate sized stool ball is seen in the rectal vault. Mesentery and Retroperitoneum: No enlarged mesenteric or retroperitoneal lymph nodes. Vessels: Normal. Abdominal Wall: within normal limits. Bones: Degenerative changes in the spine. IMPRESSION: 1. Moderate stool retention throughout the colon 2. Cholelithiasis
[2019-08-19 22:15] LABS: Phosphorus 1.4 mg/dL (2.3-4.7)
[2019-08-19] MEDS ORDERED: SODIUM CHLORIDE 0.9% IVPB SCH (23:00)
[2019-08-19] MEDS ORDERED: SODIUM PHOSPHATE IVPB SCH (23:00)
[2019-08-19] MEDS ORDERED: K-Phos Neutral 250 MG TAB PO SCH (23:45)
== END 2019-08-20 00:10 | disposition home or self-care (01) ==
LOC: ERS 20:25
DX: G40.909 Epilepsy, unspecified, not intractable, without status epilepticus (principal); K59.00 Constipation, unspecified; E03.9 Hypothyroidism, unspecified; E78.5 Hyperlipidemia, unspecified; Z79.899 Other long term (current) drug therapy
CPT/HCPCS: 36415; 36416; 74177; 80053; 80175; 80177; 83735; 84100; 84146; 84443; 85025; 93005; 96360; J3010; J7050; Q9967

== ENCOUNTER 2019-09-02 08:31 | Day surgery (SDC) | payer MEDICARE, MEDICAID ==
[2019-09-01 14:45] VITALS: BMI 27.7
[2019-09-02] MEDS ORDERED: Midazolam HCl 2 mg/2 ml Vial ONE (10:32)
[2019-09-02] MEDS ORDERED: PROPOFOL 200 MG/20 ML VIAL ONE (10:55)
[2019-09-02] MEDS ORDERED: Lidocaine 1% PF 5 ML VIAL ONE (10:55)
--- NOTE | 2019-09-02 11:43 | OP ---
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 PROCEDURES PERFORMED: 1. Esophagogastroduodenoscopy with biopsies. 2. Did not attempt to perform planned colonoscopy, due to large amount of solid stool in the patient's briefs, signifying poor prep. MEDICATIONS: See Anesthesia record. FINDINGS: After discussion of the risks, benefits, and alternatives of the procedure, informed consent was obtained and witnessed. Pre-endoscopic cardiopulmonary examination was satisfactory. Time-out was performed before sedation was achieved. Sedation was achieved with Anesthesia assistance in the endoscopy unit. A Pentax adult upper endoscope was placed into the oropharynx and passed through the cricopharyngeus under direct visualization. The esophageal mucosa appeared normal throughout with a normal-appearing Z-line at 33 cm from the incisors. The endoscope was then advanced into the stomach. Forward and retroflexed views of the entire gastric mucosa were obtained. In the gastric antrum and body, there is diffuse erythema and edema without any erosions or ulcerations. Biopsies were obtained from the gastric antrum and body to rule out H. pylori. The endoscope was passed through the pylorus and into the first and second portions of the duodenum, which appeared normal. The ampulla is prominent, but otherwise appears normal. The upper endoscope was completely withdrawn and the patient was repositioned. Digital rectal exam was performed. There was a large amount of solid and semi-solid stool in the patient's briefs and coming out of the anal opening, signifying poor bowel preparation. I did not attempt colonoscopy today, due to this finding. At this point, the procedure was completed, the patient tolerated the procedure well. There were no immediate postprocedure complications. IMPRESSION: 1. Diffuse moderate nonerosive gastritis in the gastric antrum and body, biopsied to rule out Helicobacter pylori. 2. Otherwise normal esophagogastroduodenoscopy. 3. Did not attempt planned colonoscopy, due to copious solid stool in the patient's briefs, signifying poor bowel preparation. RECOMMENDATION: 1. Stop ibuprofen. 2. Continue omeprazole. 3. Follow up pathology on the gastric biopsies. 4. We will have to reschedule the colonoscopy, with two-day bowel preparation. Give lactulose on a daily basis the week prior to the exam. Job ID: [id number]
== END 2019-09-02 11:50 | disposition home or self-care (01) ==
LOC: SDC 08:31
PROVIDERS: ATTEND Internal Medicine
PROC: 0DB78ZX Excision of Stomach, Pylorus, Via Natural or Artificial Opening Endoscopic, Diagnostic (ICD-10-PCS; principal; 2019-09-02)
DX: R63.0 Anorexia (principal); R63.4 Abnormal weight loss; R19.7 Diarrhea, unspecified; K59.00 Constipation, unspecified; N18.9 Chronic kidney disease, unspecified; E78.5 Hyperlipidemia, unspecified; E03.9 Hypothyroidism, unspecified; M41.9 Scoliosis, unspecified; Z79.899 Other long term (current) drug therapy; Z88.2 Allergy status to sulfonamides
CPT/HCPCS: 88305; 88312; J2001; J2250; J2704

== ENCOUNTER 2019-09-03 13:41 | Outpatient (CLI) | payer MEDICARE, MEDICAID ==
--- NOTE | 2019-09-03 16:25 | MMO ---
Bilateral MAMMO Bilat Screen [facility]. CLINICAL HISTORY: Patient is 49 years old and is seen for screening. The patient has no family history of breast cancer. The patient has no personal history of cancer. VIEWS: The views performed were: bilateral craniocaudal with tomosynthesis and bilateral mediolateral oblique with tomosynthesis. FILMS COMPARED: The present examination has been compared to prior imaging studies performed at [facility] on 11/25/2014, 12/22/2015, 12/23/2016 and 12/24/2017. This study has been interpreted with the assistance of computer-aided detection. MAMMOGRAM FINDINGS: The breasts are almost entirely fat. There are benign appearing and vascular calcifications seen in both breasts. There are no suspicious masses, suspicious calcifications, or new areas of architectural distortion. IMPRESSION: THERE IS NO MAMMOGRAPHIC EVIDENCE OF MALIGNANCY. A ROUTINE FOLLOW-UP MAMMOGRAM IN 1 YEAR IS RECOMMENDED. THE RESULTS OF THIS EXAM WERE SENT TO THE PATIENT. ACR BI-RADS Category 2 - Benign finding MAMMOGRAPHY NOTE: 1. A negative mammogram report should not delay a biopsy if a dominant of clinically suspicious mass is present. 2. Approximately 10% to 15% of breast cancers are not detected by mammography. 3. Adenosis and dense breasts may obscure an underlying neoplasm. Reported by: ZACHARIAH ELLIS MD Electonically Signed: [id number]
== END 2019-09-03 13:42 | disposition home or self-care (01) ==
LOC: BICMAMMO 13:41
PROVIDERS: ATTEND Internal Medicine
DX: Z12.31 Encounter for screening mammogram for malignant neoplasm of breast (principal)
CPT/HCPCS: 77063; 77067

== ENCOUNTER 2020-06-11 18:27 | Emergency (ER) | payer MEDICARE, MEDICAID | END 2020-06-11 20:19 | disposition home or self-care (01) | LOC: ERS 18:27 | DX: R09.89 Other specified symptoms and signs involving the circulatory and respiratory systems (principal); G40.909 Epilepsy, unspecified, not intractable, without status epilepticus; E03.9 Hypothyroidism, unspecified; E78.5 Hyperlipidemia, unspecified | CPT/HCPCS: 99283 ==

== ENCOUNTER 2020-11-16 10:01 | Emergency (ER) | payer MEDICARE, MEDICAID ==
[2020-11-16] MEDS ORDERED: Lorazepam 2 MG/ML VIAL ONE (17:16)
== END 2020-11-16 11:04 | disposition home or self-care (01) ==
LOC: ERS 10:01
DX: Z20.822 Contact with and (suspected) exposure to COVID-19 (principal); E03.9 Hypothyroidism, unspecified; E78.5 Hyperlipidemia, unspecified
CPT/HCPCS: 99283; J2060

== ENCOUNTER 2021-09-03 19:58 | Inpatient (IN) | payer MEDICARE, MEDICAID ==
[2021-09-03 20:53] LABS: #Basophils 0.1 thou/uL (0.0-0.2); #Lymphocytes 1.7 thou/uL (1.20-3.40); #Neutrophils 6.1 thou/uL (1.40-6.50); %Basophils 0.8 % (0.0-1.0); %Eosinophils 0.5 % (0.0-10.0); %Lymphocytes 18.7 % (21.0-51.0); %Monocytes 10.8 % (0.0-10.0); %Neutrophils 69.2 % (42.0-75.0); Hemoglobin 15.7 g/dL (12.0-16.0); Mean Corpuscular HGB CONC 33.2 g/dL (32.0-36.0); Mean Corpuscular Hemoglobin 33.9 pg (27.0-31.0); Mean Platelet Volume 9.2 fL (7.4-10.4); Platelet Count 233 thou/uL (130-400); RBC Distribution Width 12.8 % (11.5-14.5); Red Blood Cell (RBC) Count 4.62 mill/uL (4.20-5.40); White Blood Cell (WBC) Count 8.8 thou/uL (4.8-10.8)
[2021-09-03 21:12] LABS: ALT (SGPT) 15 U/L (8-55); AST (SGOT) 22 U/L (5-34); Albumin 4.3 g/dL (3.5-5.0); Alkaline Phosphatase 102 U/L (40-110); Anion Gap 16 mmol/L (10-20); BUN (Urea Nitrogen) 29 mg/dL (9.8-20.1); Bilirubin, Total 0.4 mg/dL (0.2-1.2); Calc. Creatinine Clearance 0 mL/min (70-130); Calcium 10.6 mg/dL (7.8-10.44); Carbon Dioxide 26 mmol/L (22-29); Chloride 110 mmol/L (98-107); Globulin 4.5 g/dL (2.4-3.5); Glucose 165 mg/dL (70-105); Lipase 44 U/L (8-78); Potassium 4.1 mmol/L (3.5-5.1); Protein, Total 8.8 g/dL (6.0-8.3); Sodium 148 mmol/L (136-145)
[2021-09-04] MEDS ORDERED: Acetaminophen 325 MG TAB PO PRN (00:19)
[2021-09-04] MEDS ORDERED: Acetaminophen 650 MG Suppository PR PRN (00:19)
[2021-09-04] MEDS ORDERED: Ondansetron ODT 4 MG TAB PO PRN (00:19)
[2021-09-04] MEDS ORDERED: Ondansetron PF 4 MG/2 ML Vial IVP PRN (00:19)
[2021-09-04 02:01] VITALS: BMI 34.5
[2021-09-04] MEDS ORDERED: Sodium Chloride 0.9% 1,000 ML IV SCH (02:30)
[2021-09-04] MEDS ORDERED: Sodium Chloride 0.9% 500 ML IV SCH (03:45)
[2021-09-04] MEDS ORDERED: Lorazepam 2 MG/ML VIAL SLOW IVP PRN (03:53)
[2021-09-04 04:21] LABS: #Basophils 0.1 thou/uL (0.0-0.2); #Eosinphils 0.1 thou/uL (0.0-0.7); #Lymphocytes 1.9 thou/uL (1.20-3.40); #Neutrophils 5.7 thou/uL (1.40-6.50); %Eosinophils 0.6 % (0.0-10.0); %Lymphocytes 21.8 % (21.0-51.0); %Monocytes 11.4 % (0.0-10.0); %Neutrophils 65.2 % (42.0-75.0); Hemoglobin 14.8 g/dL (12.0-16.0); Mean Corpuscular HGB CONC 33.6 g/dL (32.0-36.0); Mean Corpuscular Hemoglobin 34.1 pg (27.0-31.0); Mean Platelet Volume 9.1 fL (7.4-10.4); Platelet Count 187 thou/uL (130-400); RBC Distribution Width 12.8 % (11.5-14.5); Red Blood Cell (RBC) Count 4.33 mill/uL (4.20-5.40); White Blood Cell (WBC) Count 8.7 thou/uL (4.8-10.8)
[2021-09-04 04:40] LABS: Anion Gap 14 mmol/L (10-20); BUN (Urea Nitrogen) 24 mg/dL (9.8-20.1); Calc. Creatinine Clearance 82 mL/min (70-130); Calcium 9.9 mg/dL (7.8-10.44); Carbon Dioxide 24 mmol/L (22-29); Chloride 117 mmol/L (98-107); Glucose 97 mg/dL (70-105); Potassium 4.1 mmol/L (3.5-5.1); Sodium 151 mmol/L (136-145)
[2021-09-04] MEDS ORDERED: Dextrose 5% in Water 1,000 ML IV SCH (06:00)
[2021-09-04 06:26] LABS: Bilirubin Negative (Negative); Blood, Urine Trace (Negative); Glucose, Urine (Dipstick) Negative (Negative); Ketone, Urine 15 mg/dL (Negative); Leukocyte Trace (Negative); Nitrite Positive (Negative); Protein, Urine (Dipstick) Negative (Neg-Trace); Specific Gravity, Urine 1.015 (1.005-1.030); Urobilinogen 0.2 mg/dL (Less than 2)
[2021-09-04 06:34] LABS: Clarity Clear (Clear)
[2021-09-04 06:41] LABS: RBC/HPF 0-3 HPF (0-3)
[2021-09-04 06:42] LABS: Bacteria/HPF 2+ HPF (None Seen); Other Microscopic Description Less than 2 mL rec'd; Squamous Epithelial 0-3 HPF (0-3); WBC/HPF 0-3 HPF (0-3)
[2021-09-04 06:43] LABS: Urine Culture Reflex Yes Yes
[2021-09-04 08:21] LABS: Anion Gap 12 mmol/L (10-20); BUN (Urea Nitrogen) 22 mg/dL (9.8-20.1); Calc. Creatinine Clearance 88 mL/min (70-130); Calcium 9.6 mg/dL (7.8-10.44); Carbon Dioxide 24 mmol/L (22-29); Chloride 117 mmol/L (98-107); Glucose 114 mg/dL (70-105); Potassium 3.9 mmol/L (3.5-5.1); Sodium 149 mmol/L (136-145)
[2021-09-04] MEDS: levETIRAcetam in NS 1,000 MG in Premix Bag 1 BAG IVPB SCH ×2 (09:07→20:21)
[2021-09-04] MEDS ORDERED: Heparin 1,000 UNITS/ML VIAL ONE (11:18)
[2021-09-04 12:07] LABS: SARS-CoV-2 PCR by NAA Not Detected (NotDetected)
[2021-09-04 12:18] LABS: Anion Gap 11 mmol/L (10-20); BUN (Urea Nitrogen) 20 mg/dL (9.8-20.1); Calc. Creatinine Clearance 96 mL/min (70-130); Calcium 9.4 mg/dL (7.8-10.44); Carbon Dioxide 23 mmol/L (22-29); Chloride 117 mmol/L (98-107); Glucose 110 mg/dL (70-105); Sodium 147 mmol/L (136-145)
[2021-09-04] MEDS ORDERED: hydrALAZINE 20 MG/ML VIAL SLOW IVP PRN (14:23)
[2021-09-04 17:30] LABS: Anion Gap 14 mmol/L (10-20); BUN (Urea Nitrogen) 18 mg/dL (9.8-20.1); Calc. Creatinine Clearance 101 mL/min (70-130); Calcium 9.1 mg/dL (7.8-10.44); Carbon Dioxide 21 mmol/L (22-29); Chloride 115 mmol/L (98-107); Glucose 101 mg/dL (70-105); Potassium 4.5 mmol/L (3.5-5.1); Sodium 145 mmol/L (136-145)
[2021-09-04] MEDS: Dextrose 5% in Water 1,000 ML IV SCH (17:59)
[2021-09-05] MEDS: Dextrose 5% in Water 1,000 ML IV SCH ×3 (00:17→14:46)
[2021-09-05 06:11] LABS: #Basophils 0.1 thou/uL (0.0-0.2); #Eosinphils 0.2 thou/uL (0.0-0.7); #Lymphocytes 2.1 thou/uL (1.20-3.40); #Monocytes 0.8 thou/uL (0.11-0.59); #Neutrophils 3.3 thou/uL (1.40-6.50); %Basophils 1.2 % (0.0-1.0); %Eosinophils 3.6 % (0.0-10.0); %Lymphocytes 31.9 % (21.0-51.0); %Monocytes 12.2 % (0.0-10.0); Hemoglobin 14.1 g/dL (12.0-16.0); Mean Corpuscular HGB CONC 32.5 g/dL (32.0-36.0); Mean Corpuscular Hemoglobin 33.2 pg (27.0-31.0); Mean Platelet Volume 9.4 fL (7.4-10.4); Platelet Count 183 thou/uL (130-400); RBC Distribution Width 12.7 % (11.5-14.5); Red Blood Cell (RBC) Count 4.23 mill/uL (4.20-5.40); White Blood Cell (WBC) Count 6.6 thou/uL (4.8-10.8)
[2021-09-05 06:26] LABS: Anion Gap 10 mmol/L (10-20); BUN (Urea Nitrogen) 16 mg/dL (9.8-20.1); Calc. Creatinine Clearance 89 mL/min (70-130); Calcium 9.5 mg/dL (7.8-10.44); Carbon Dioxide 27 mmol/L (22-29); Chloride 110 mmol/L (98-107); Glucose 94 mg/dL (70-105); Potassium 3.5 mmol/L (3.5-5.1); Sodium 143 mmol/L (136-145)
[2021-09-05] MEDS: levETIRAcetam in NS 1,000 MG in Premix Bag 1 BAG IVPB SCH ×2 (08:17→21:16)
[2021-09-05] MEDS: Enoxaparin Sodium 40 MG/0.4 ML SYRINGE SC SCH (08:18)
[2021-09-05] MEDS ORDERED: FLU VACC QS2021-22(6MOS UP)/PF 60 MCG/0.5 ML SYRINGE IM ONE (09:00)
[2021-09-05] MEDS: cefTRIAXone\\ROCEPHIN 1 GM in Sodium Chloride 0.9% 100 ML IVPB SCH (11:35)
[2021-09-06] MEDS: Dextrose 5% in Water 1,000 ML IV SCH ×2 (01:47→18:14)
[2021-09-06] MEDS: Enoxaparin Sodium 40 MG/0.4 ML SYRINGE SC SCH (08:23)
[2021-09-06] MEDS: levETIRAcetam in NS 1,000 MG in Premix Bag 1 BAG IVPB SCH ×2 (08:24→20:30)
[2021-09-06] MEDS: cefTRIAXone\\ROCEPHIN 1 GM in Sodium Chloride 0.9% 100 ML IVPB SCH (10:55)
[2021-09-06 23:45] LABS: Anion Gap 14 mmol/L (10-20); BUN (Urea Nitrogen) 6 mg/dL (9.8-20.1); Calc. Creatinine Clearance 106 mL/min (70-130); Calcium 9.5 mg/dL (7.8-10.44); Carbon Dioxide 22 mmol/L (22-29); Chloride 103 mmol/L (98-107); Glucose 103 mg/dL (70-105); Potassium 3.4 mmol/L (3.5-5.1); Sodium 136 mmol/L (136-145)
[2021-09-07] MEDS: Dextrose 5% in Water 1,000 ML IV SCH ×2 (05:22→20:26)
[2021-09-07] MEDS: levETIRAcetam in NS 1,000 MG in Premix Bag 1 BAG IVPB SCH ×2 (09:21→20:24)
[2021-09-07] MEDS: Enoxaparin Sodium 40 MG/0.4 ML SYRINGE SC SCH (09:22)
[2021-09-07] MEDS: cefTRIAXone\\ROCEPHIN 1 GM in Sodium Chloride 0.9% 100 ML IVPB SCH (10:24)
[2021-09-07] MEDS: Megestrol Acetate 40 MG TAB PO SCH (20:24)
[2021-09-08] MEDS: Dextrose 5% in Water 1,000 ML IV SCH ×2 (08:49→20:21)
[2021-09-08] MEDS: Megestrol Acetate 40 MG TAB PO SCH ×3 (08:50→20:24)
[2021-09-08] MEDS: levETIRAcetam in NS 1,000 MG in Premix Bag 1 BAG IVPB SCH ×2 (08:53→20:18)
[2021-09-08] MEDS: Enoxaparin Sodium 40 MG/0.4 ML SYRINGE SC SCH (08:56)
[2021-09-08] MEDS: cefTRIAXone\\ROCEPHIN 1 GM in Sodium Chloride 0.9% 100 ML IVPB SCH (11:40)
[2021-09-09] MEDS: levETIRAcetam in NS 1,000 MG in Premix Bag 1 BAG IVPB SCH ×2 (09:45→20:26)
[2021-09-09] MEDS: Megestrol Acetate 40 MG TAB PO SCH ×2 (09:48→20:29)
[2021-09-09] MEDS: Enoxaparin Sodium 40 MG/0.4 ML SYRINGE SC SCH (09:49)
[2021-09-09] MEDS ORDERED: Iopamidol-370 76% 500 ML 1 ML ONE (10:18)
[2021-09-09] MEDS ORDERED: Bisacodyl 10 MG SUPP PR PRN (10:39)
[2021-09-09] MEDS: Dextrose 5% in Water 1,000 ML IV SCH (11:45)
[2021-09-09] MEDS: cefTRIAXone\\ROCEPHIN 1 GM in Sodium Chloride 0.9% 100 ML IVPB SCH (11:48)
[2021-09-09] MEDS: Bisacodyl 10 MG SUPP PR SCH ×2 (14:46→20:26)
[2021-09-10] MEDS: Dextrose 5% in Water 1,000 ML IV SCH ×2 (01:56→10:54)
[2021-09-10] MEDS: Bisacodyl 10 MG SUPP PR SCH (05:32)
[2021-09-10] MEDS: levETIRAcetam in NS 1,000 MG in Premix Bag 1 BAG IVPB SCH (07:40)
[2021-09-10] MEDS: Megestrol Acetate 40 MG TAB PO SCH ×3 (07:41→21:51)
[2021-09-10] MEDS: Enoxaparin Sodium 40 MG/0.4 ML SYRINGE SC SCH (07:41)
[2021-09-10 12:14] LABS: Hemoglobin 15.7 g/dL (12.0-16.0); Mean Corpuscular HGB CONC 34.8 g/dL (32.0-36.0); Mean Corpuscular Hemoglobin 34.3 pg (27.0-31.0); Mean Corpuscular Volume 98.5 fL (78.0-98.0); Platelet Count 203 thou/uL (130-400); RBC Distribution Width 12.6 % (11.5-14.5); Red Blood Cell (RBC) Count 4.57 mill/uL (4.20-5.40); White Blood Cell (WBC) Count 9.3 thou/uL (4.8-10.8)
[2021-09-10 12:28] LABS: Band 5 % (5-11); Eosinophils 2 % (0-10); Lymphocytes 23 % (21-51); MDiff Complete? YES; Monocytes 13 % (0-10); Neutrophil 57 % (42-75)
[2021-09-10 12:32] LABS: ALT (SGPT) 14 U/L (8-55); AST (SGOT) 16 U/L (5-34); Albumin 3.3 g/dL (3.5-5.0); Alkaline Phosphatase 88 U/L (40-110); Anion Gap 11 mmol/L (10-20); BUN (Urea Nitrogen) 5 mg/dL (9.8-20.1); Bilirubin, Total 0.4 mg/dL (0.2-1.2); Calc. Creatinine Clearance 111 mL/min (70-130); Carbon Dioxide 24 mmol/L (22-29); Chloride 104 mmol/L (98-107); Globulin 4.1 g/dL (2.4-3.5); Glucose 92 mg/dL (70-105); Potassium 3.9 mmol/L (3.5-5.1); Protein, Total 7.4 g/dL (6.0-8.3); Sodium 135 mmol/L (136-145)
[2021-09-10] MEDS: Valproate Sodium 500 MG in Sodium Chloride 0.9% 100 ML IVPB SCH (16:24)
[2021-09-10] MEDS: Latanoprost 0.005% Ophth Soln 2.5 ml Bottle EA EYE SCH ×2 (21:45→21:52)
[2021-09-10] MEDS: levETIRAcetam in NS 1,500 MG in Premix Bag 1 BAG IVPB SCH (21:45)
[2021-09-11] MEDS: Dextrose 5% in Water 1,000 ML IV SCH ×3 (00:55→16:19)
[2021-09-11] MEDS: Valproate Sodium 500 MG in Sodium Chloride 0.9% 100 ML IVPB SCH ×2 (03:17→16:02)
[2021-09-11] MEDS: Levothyroxine Sodium 50 MCG TAB PO SCH ×2 (05:41→05:44)
[2021-09-11] MEDS: Enoxaparin Sodium 40 MG/0.4 ML SYRINGE SC SCH (07:49)
[2021-09-11] MEDS: Megestrol Acetate 40 MG TAB PO SCH ×2 (07:50→20:12)
[2021-09-11] MEDS: Oxybutynin 5 MG TAB PO SCH (07:50)
[2021-09-11] MEDS ORDERED: Polyethylene Glycol 3350 17 GM Packet PO SCH (09:00)
[2021-09-11] MEDS: levETIRAcetam in NS 1,500 MG in Premix Bag 1 BAG IVPB SCH ×2 (09:11→20:14)
[2021-09-11] MEDS: Latanoprost 0.005% Ophth Soln 2.5 ml Bottle EA EYE SCH (20:12)
[2021-09-11] MEDS: Polyethylene Glycol 3350 17 GM Packet PO SCH (20:13)
[2021-09-12 01:30] LABS: SARS-CoV-2 PCR by NAA Not Detected (NotDetected)
[2021-09-12] MEDS: Valproate Sodium 500 MG in Sodium Chloride 0.9% 100 ML IVPB SCH ×2 (03:11→15:37)
[2021-09-12] MEDS: Dextrose 5% in Water 1,000 ML IV SCH ×3 (04:30→18:12)
[2021-09-12] MEDS: Levothyroxine Sodium 50 MCG TAB PO SCH (04:56)
[2021-09-12] MEDS: levETIRAcetam in NS 1,500 MG in Premix Bag 1 BAG IVPB SCH ×2 (08:12→21:00)
[2021-09-12] MEDS: Enoxaparin Sodium 40 MG/0.4 ML SYRINGE SC SCH (08:19)
[2021-09-12] MEDS: Megestrol Acetate 40 MG TAB PO SCH ×2 (08:19→20:33)
[2021-09-12] MEDS: Polyethylene Glycol 3350 17 GM Packet PO SCH ×2 (08:19→20:33)
[2021-09-12] MEDS: Oxybutynin 5 MG TAB PO SCH (08:19)
[2021-09-12] MEDS ORDERED: D5W-AA 4.25% with LYTES 1,000 ML IV SCH ×2 (14:30→15:00)
[2021-09-12] MEDS: AA 4.25 %/CALCIUM/LYTES/D5W 2,000 ML IV SCH (16:42)
[2021-09-12] MEDS: Latanoprost 0.005% Ophth Soln 2.5 ml Bottle EA EYE SCH (20:33)
[2021-09-13] MEDS: Valproate Sodium 500 MG in Sodium Chloride 0.9% 100 ML IVPB SCH ×2 (02:49→15:44)
[2021-09-13] MEDS: Levothyroxine Sodium 50 MCG TAB PO SCH (05:33)
[2021-09-13] MEDS ORDERED: Levothyroxine 100 MCG SDV IVP SCH (06:57)
[2021-09-13] MEDS: levETIRAcetam in NS 1,500 MG in Premix Bag 1 BAG IVPB SCH ×2 (08:35→21:01)
[2021-09-13] MEDS: Oxybutynin 5 MG TAB PO SCH (10:27)
[2021-09-13] MEDS: Polyethylene Glycol 3350 17 GM Packet PO SCH ×2 (10:27→21:05)
[2021-09-13] MEDS: Megestrol Acetate 40 MG TAB PO SCH ×2 (10:27→21:05)
[2021-09-13] MEDS: Enoxaparin Sodium 40 MG/0.4 ML SYRINGE SC SCH (10:27)
[2021-09-13] MEDS ORDERED: Ketamine 50 MG/ML (10ML VIAL) ONE (11:49)
[2021-09-13] MEDS ORDERED: Fentanyl 100 MCG/2 ML VIAL ONE (11:49)
[2021-09-13] MEDS ORDERED: Propofol 500 MG/50 ML VIAL ONE (12:00)
[2021-09-13] MEDS ORDERED: Midazolam HCl 2 mg/2 ml Vial ONE (12:32)
[2021-09-13] MEDS ORDERED: Glycopyrrolate 0.2 MG/ML 5 ML SYRINGE ONE (12:36)
[2021-09-13] MEDS: AA 4.25 %/CALCIUM/LYTES/D5W 2,000 ML IV SCH (16:10)
[2021-09-13] MEDS: Latanoprost 0.005% Ophth Soln 2.5 ml Bottle EA EYE SCH (21:01)
[2021-09-14] MEDS: Valproate Sodium 500 MG in Sodium Chloride 0.9% 100 ML IVPB SCH ×2 (02:52→14:49)
[2021-09-14] MEDS: levETIRAcetam in NS 1,500 MG in Premix Bag 1 BAG IVPB SCH ×2 (08:15→20:50)
[2021-09-14] MEDS: Megestrol Acetate 40 MG TAB PO SCH ×2 (08:15→20:50)
[2021-09-14] MEDS: Oxybutynin 5 MG TAB PO SCH (08:15)
[2021-09-14] MEDS: Polyethylene Glycol 3350 17 GM Packet PO SCH ×2 (08:16→20:50)
[2021-09-14] MEDS: Enoxaparin Sodium 40 MG/0.4 ML SYRINGE SC SCH (08:16)
[2021-09-14] MEDS: AA 4.25 %/CALCIUM/LYTES/D5W 2,000 ML IV SCH (16:17)
[2021-09-14] MEDS: Latanoprost 0.005% Ophth Soln 2.5 ml Bottle EA EYE SCH (20:50)
[2021-09-15] MEDS: Valproate Sodium 500 MG in Sodium Chloride 0.9% 100 ML IVPB SCH ×2 (03:17→15:04)
[2021-09-15] MEDS ORDERED: PROPOFOL 200 MG/20 ML VIAL ONE (08:53)
[2021-09-15] MEDS: Enoxaparin Sodium 40 MG/0.4 ML SYRINGE SC SCH (09:05)
[2021-09-15] MEDS: Oxybutynin 5 MG TAB PO SCH (09:05)
[2021-09-15] MEDS: Polyethylene Glycol 3350 17 GM Packet PO SCH ×2 (09:05→19:53)
[2021-09-15] MEDS: Megestrol Acetate 40 MG TAB PO SCH ×2 (09:05→19:53)
[2021-09-15] MEDS ORDERED: ceFAZolin 2 GM/DEX 5% 100 ML BAG ONE (09:13)
[2021-09-15] MEDS: levETIRAcetam in NS 1,500 MG in Premix Bag 1 BAG IVPB SCH ×2 (10:43→19:53)
[2021-09-15] MEDS: Latanoprost 0.005% Ophth Soln 2.5 ml Bottle EA EYE SCH (20:43)
[2021-09-16] MEDS: Valproate Sodium 500 MG in Sodium Chloride 0.9% 100 ML IVPB SCH ×2 (02:29→15:17)
[2021-09-16] MEDS: Megestrol Acetate 40 MG TAB PO SCH ×2 (08:15→20:09)
[2021-09-16] MEDS: Oxybutynin 5 MG TAB PO SCH (08:15)
[2021-09-16] MEDS: levETIRAcetam in NS 1,500 MG in Premix Bag 1 BAG IVPB SCH ×2 (08:16→20:09)
[2021-09-16] MEDS: Polyethylene Glycol 3350 17 GM Packet PO SCH ×2 (08:16→20:10)
[2021-09-16] MEDS: Enoxaparin Sodium 40 MG/0.4 ML SYRINGE SC SCH (08:16)
[2021-09-16] MEDS: Latanoprost 0.005% Ophth Soln 2.5 ml Bottle EA EYE SCH (20:17)
[2021-09-17] MEDS: Valproate Sodium 500 MG in Sodium Chloride 0.9% 100 ML IVPB SCH ×2 (02:03→14:34)
[2021-09-17] MEDS: levETIRAcetam in NS 1,500 MG in Premix Bag 1 BAG IVPB SCH (08:38)
[2021-09-17] MEDS: Megestrol Acetate 40 MG TAB PO SCH ×2 (08:38→20:31)
[2021-09-17] MEDS: Enoxaparin Sodium 40 MG/0.4 ML SYRINGE SC SCH (08:38)
[2021-09-17] MEDS: Oxybutynin 5 MG TAB PO SCH (08:39)
[2021-09-17] MEDS: Polyethylene Glycol 3350 17 GM Packet PO SCH ×2 (08:39→20:31)
[2021-09-17] MEDS ORDERED: Metoclopramide HCl 10 MG/2 ML VIAL IVP PRN (16:19)
[2021-09-17] MEDS: levETIRAcetam 500 MG TAB PO SCH (20:31)
[2021-09-17] MEDS: Latanoprost 0.005% Ophth Soln 2.5 ml Bottle EA EYE SCH (20:31)
[2021-09-17] MEDS: Valproic Acid 250 MG CAP PO SCH (20:31)
[2021-09-18] MEDS: Oxybutynin 5 MG TAB PO SCH (09:05)
[2021-09-18] MEDS: Enoxaparin Sodium 40 MG/0.4 ML SYRINGE SC SCH (09:05)
[2021-09-18] MEDS: Megestrol Acetate 40 MG TAB PO SCH ×2 (09:05→22:06)
[2021-09-18] MEDS: Valproic Acid 250 MG CAP PO SCH ×2 (09:06→22:06)
[2021-09-18] MEDS: Polyethylene Glycol 3350 17 GM Packet PO SCH ×2 (09:06→22:06)
[2021-09-18] MEDS: levETIRAcetam 500 MG TAB PO SCH (11:32)
[2021-09-18] MEDS ORDERED: levETIRAcetam 100 mg/ml Oral Solution PER TUBE SCH (21:00)
[2021-09-18] MEDS: levETIRAcetam 500 mg/5 ml Oral Solution PER TUBE SCH (22:06)
[2021-09-18] MEDS: Latanoprost 0.005% Ophth Soln 2.5 ml Bottle EA EYE SCH (22:06)
[2021-09-19] MEDS: Valproic Acid 250 MG CAP PO SCH (09:04)
[2021-09-19] MEDS: Megestrol Acetate 40 MG TAB PO SCH (09:04)
[2021-09-19] MEDS: Oxybutynin 5 MG TAB PO SCH (09:04)
[2021-09-19] MEDS: levETIRAcetam 500 mg/5 ml Oral Solution PER TUBE SCH (09:05)
[2021-09-19] MEDS: Polyethylene Glycol 3350 17 GM Packet PO SCH (09:06)
[2021-09-19] MEDS: Enoxaparin Sodium 40 MG/0.4 ML SYRINGE SC SCH (09:06)
[2021-09-19 18:41] VITALS: BP 134/83; TEMP 98.7
[2021-09-19 18:50] LABS: SARS-CoV-2 PCR by NAA Not Detected (NotDetected)
== END 2021-09-19 19:14 | DRG 682 ==
LOC: ERS 19:58 → T4-A 09-04 00:07 → OBSVTOIN 09-04 15:10
PROVIDERS: ADMIT Student in an Organized Health Care Education/Training Program; ATTEND Internal Medicine
PROC: 02HV33Z Insertion of Infusion Device into Superior Vena Cava, Percutaneous Approach (ICD-10-PCS; 2021-09-13)
PROC: B5181ZA Fluoroscopy of Superior Vena Cava using Low Osmolar Contrast, Guidance (ICD-10-PCS; 2021-09-13)
PROC: B548ZZA Ultrasonography of Superior Vena Cava, Guidance (ICD-10-PCS; 2021-09-13)
PROC: 3E0436Z Introduction of Nutritional Substance into Central Vein, Percutaneous Approach (ICD-10-PCS; 2021-09-13)
PROC: 0DH63UZ Insertion of Feeding Device into Stomach, Percutaneous Approach (ICD-10-PCS; principal; 2021-09-15)
PROC: 3E0G76Z Introduction of Nutritional Substance into Upper GI, Via Natural or Artificial Opening (ICD-10-PCS; 2021-09-15)
DX: N17.9 Acute kidney failure, unspecified (principal); Z66 Do not resuscitate; Z51.5 Encounter for palliative care; Z20.822 Contact with and (suspected) exposure to COVID-19; G93.41 Metabolic encephalopathy; E87.1 Hypo-osmolality and hyponatremia; E87.0 Hyperosmolality and hypernatremia; E87.2 Acidosis; N30.00 Acute cystitis without hematuria; G40.909 Epilepsy, unspecified, not intractable, without status epilepticus; K80.20 Calculus of gallbladder without cholecystitis without obstruction; R13.12 Dysphagia, oropharyngeal phase; F79 Unspecified intellectual disabilities; G80.9 Cerebral palsy, unspecified; E03.9 Hypothyroidism, unspecified; N18.9 Chronic kidney disease, unspecified; E86.0 Dehydration; N18.30 Chronic kidney disease, stage 3 unspecified; I12.9 Hypertensive chronic kidney disease with stage 1 through stage 4 chronic kidney disease, or unspecified chronic kidney disease; D63.1 Anemia in chronic kidney disease; B96.20 Unspecified Escherichia coli [E. coli] as the cause of diseases classified elsewhere; H40.9 Unspecified glaucoma; S01.552A Open bite of oral cavity, initial encounter; X58.XXXA Exposure to other specified factors, initial encounter; R63.0 Anorexia; Z68.34 Body mass index [BMI] 34.0-34.9, adult; K59.00 Constipation, unspecified; Z28.21 Immunization not carried out because of patient refusal; Z99.3 Dependence on wheelchair; Z88.1 Allergy status to other antibiotic agents; Z88.2 Allergy status to sulfonamides; Z79.899 Other long term (current) drug therapy; Z79.890 Hormone replacement therapy
CPT/HCPCS: 36415; 36569; 70450; 70491; 71260; 74177; 80048; 80053; 81001; 83690; 83880; 84443; 85025; 87086; 87186; 96374; C1751; G0378; J0696; J1644; J1650; J1953; J2250; J2704; J3010; J3490; J7030; J7050; J7070; Q9967; S0179; U0003; U0005